=== PATIENT | male | born 1980 | race Caucasian/White ===

== ENCOUNTER 2019-03-15 22:05 | Emergency (ER) | payer SELFPAY ==
[~2019-03-15] VITALS: Ht 180.3 cm; Wt 97.5 kg
[~2019-03-15 22:05] MED LIST: CEPH-443 PO; IBUP-1542 PO; ONDA8TAB9 PO; OXYC5CAP17 PO; TAMS-14 PO
[2019-03-15 22:12] VITALS: Ht 180.3 cm; Wt 97.5 kg
[2019-03-15] MEDS ORDERED: ONDANSETRON 4 MG INJ IV STA ×2 (22:36→22:56)
[2019-03-15] MEDS ORDERED: KETOROLAC 15 MG INJ IV STA (22:36)
[2019-03-15] MEDS ORDERED: KETAMINE HCL (50 MG/ML) 1ml syringe IV STA (22:56)
[2019-03-15] MEDS ORDERED: SOD CHLORIDE 0.9% 1,000 ML IV ONE (23:00)
[2019-03-16] MEDS ORDERED: CEFTRIAXONE 1 GM/50 ML (PMX) 50 ML IVPB ONE (00:30)
[2019-03-16] MEDS ORDERED: FENTAnyl 50 MCG/ML VIAL IV ONE (01:00)
[2019-03-16 01:30] VITALS: BP 154/95; PULSE 98; RESP 18
== END 2019-03-16 01:30 | disposition home or self-care (01) ==
LOC: E/R 22:05
DX: N23 Unspecified renal colic (principal); D72.829 Elevated white blood cell count, unspecified; N13.30 Unspecified hydronephrosis; N30.01 Acute cystitis with hematuria; N20.0 Calculus of kidney
CPT/HCPCS: 36415; 74176; 80053; 81001; 83690; 85025; 96374; 96375; 99285; J0696; J1885; J2405; J3010; J7030; J7999; 81003